=== PATIENT | female | born 1980 | race Caucasian/White ===

== ENCOUNTER → 2017-10-30 | Day surgery (SDC) | payer OTHER ==
--- NOTE | 2017-10-29 19:29 | History & Physical Pre-Op ---
General Information and HPI History of Present Illness: Special is a 37-year-old 2 para 2 with pelvic pain secondary to right ovarian cyst seen in the office 2 weeks ago presents to 6 cm in size. Previously seen 2 months prior with same cyst no resolution since that time and patient desires laparoscopic excision today. Allergies/Medications Allergies: Coded Allergies: No Known Allergies (10/24/17) Home Med list Acetaminophen/Hydrocodone Bi ([place] 325 MG-5 MG) 1 TAB TAB 1 TAB PO Q6HR PRN PAIN Hydrocodone/Acetaminophen (Hydrocodon-Acetaminophen 5-325) 5 MG-325 MG TABLET 1-2 TAB PO Q4-6 PRN PRN pain Sulfamethoxazole/Trimethoprim (Bactrim Ds Tablet) 800 MG-160 MG TABLET 1 TAB PO BID uti Past History Medical History Neurological: NONE EENT: NONE Cardiovascular: NONE Respiratory: NONE Gastrointestinal: NONE Hepatic: NONE Renal: NONE Musculoskeletal: NONE Psychiatric: NONE, PTSD Endocrine: NONE Blood Disorders: NONE WEB ADMINISTRATOR/Reproductive: NONE Surgical History Pertinent Surgical History: D&C Review of Systems Review of Systems Constitutional: Reports: see HPI. EENTM: Reports: no symptoms. Cardiovascular: Reports: no symptoms. Respiratory: Reports: no symptoms. GI: Reports: no symptoms. Genitourinary: Reports: see HPI. Musculoskeletal: Reports: no symptoms. Skin: Reports: no symptoms. Neurological/Psychological: Reports: no symptoms. Hematologic/Endocrine: Reports: no symptoms. Immunologic/Allergic: Reports: no symptoms. All Other Systems: Reviewed and Negative Exam & Diagnostic Data Physical Exam: HEENT: Normocephalic atraumatic Chest: Clear to auscultation bilaterally Cardiovascular: Normal S1-S2 Abdomen: Soft nontender no masses Pelvic: Deferred OR Extremities: No clubbing cyanosis or edema Assessment/Plan Assessment/Plan: Right ovarian cyst Plan laparoscopic excision of right ovarian cyst As Ranked By This Provider Problem List: 1. Right ovarian cyst
[~2017-10-30] VITALS: Ht 160 cm; Wt 65.8 kg
[~2017-10-30] MED LIST: BACTRIM DS TAB1 EACH PO; HYDROCODON-ACE1 EAC2 PO; NORCO 325 MG-51 TAB PO
--- NOTE | 2017-10-31 13:53 | Operative Report ---
Operative/Inv Procedure Report Surgery Date: 10/30/17 Name of Procedure: Laparoscopic excision of right ovarian cyst Pre-Operative Diagnosis: Right ovarian cyst Post-Operative Diagnosis: Same Estimated Blood Loss: scant Surgeon/Validation Technician: Dirk Farmer MD Anesthesia: general endotracheal tube Operative/Procedure Note Note: The patient was brought to the operating room and placed on the OR table in the supine position. She underwent successful general anesthesia and was successfully intubated. She was repositioned into modified port a modified dorsal lithotomy position. She was prepped and draped in usual sterile fashion. Speculum was inserted into the vagina and with the help of a Ronak retractor E single-toothed tenaculum was attached to the anterior lip of the cervix. An acorn cannula was then inserted into the cervical os and attached to the tenaculum. The weighted speculum was removed. A Martinez catheter was placed and drained clear yellow urine. The surgeon's gloves were changed and attention was paid to the abdomen. An infraumbilical skin incision was made with the scalpel and the Veress needle was placed into the abdominal cavity. All attempts were made however high opening pressures were noted and the decision was made for open laparoscopy. The incision was extended the fascia was grasped and clamped and entered. The underlying peritoneum was opened with Metzenbaum clamps. A 12 mm Was Placed through the Incision and the Abdomen Was Insufflated. The Patient Was Placed into Trendelenburg Position. A Suprapubic Stab Incision Was Made and a 5 Mm Disposable Trocar Was Inserted under Direct Visualization. Exploration of the Pelvic Cavity Revealed a Normal Uterus and Fallopian Tubes. The Right Ovary Was Approximately 6 Cm in Size with a Benign-Appearing Cyst. A Left Lower Quadrant Port Was Placed in a Similar Fashion under Direct Visualization. Through the 2 Lower Ports the Ovary Was Elevated Aspirated of Its Contents and the Cyst Was Opened. Partial Cyst Wall Was Removed for Histologic Confirmation As Well As for Therapy. Any Bleeding Sites Were Coagulated and Hemostasis Was Good. A Cyst of M[place]agni Was Removed from the Right Fallopian Tube. The End of the Procedure the Abdomen and Pelvis Were Copiously Irrigated and All Sutures Skews Me All Surgical Sites Were Noted to Be Hemostatic. The CO2 Gas Was Allowed to Escape the Abdomen and the Instruments Were Removed. The Fascia Was Closed in a Running Locking Fashion of 0 Polysorb. The Skin Incisions Were Closed with 4-0 Biosyn in an Interrupted Fashion and Dressed. The Vaginal Instruments Removed As Well As the Martinez and the Patient Was Sent to Recovery in Good Condition. All Needle, Sponge, and Management Counts Are Correct at the End of the Procedure 2.
== END ==
LOC: STS 04:21
DX: N83.291 Other ovarian cyst, right side (principal); R10.2 Pelvic and perineal pain
CPT/HCPCS: 36415; 81025; 88305; C9399; J0131; J1100; J2250; J2405

== ENCOUNTER → 2018-05-14 | Day surgery (SDC) | payer OTHER ==
--- NOTE | 2018-05-13 18:50 | History & Physical Pre-Op ---
General Information and HPI History of Present Illness: This patient is a 37-year-old 2 para 2 with recurrence of right ovarian cyst admitted today for laparoscopic right oophorectomy or cystectomy. The patient is requesting oophorectomy secondary to a recurrence however the decision will be made at the time of surgery. Patient has a than experiencing low right-sided pelvic pain since the formation of the cyst. 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 EENTM: Reports: no symptoms. Cardiovascular: Reports: no symptoms. Respiratory: Reports: no symptoms. GI: Reports: no symptoms. Genitourinary: Reports: see HPI. Musculoskeletal: Reports: no symptoms. Skin: Reports: no symptoms. Neurological/Psychological: Reports: no symptoms. Hematologic/Endocrine: Reports: no symptoms. Immunologic/Allergic: Reports: no symptoms. All Other Systems: Reviewed and Negative Exam & Diagnostic Data Last 24 Hrs of Vital Signs/I&O Vital signs stable Physical Exam: HEENT: Normocephalic atraumatic Chest: Clear to auscultation bilaterally Cardiovascular: Normal S1-S2 Abdomen: Soft nontender nondistended Pelvic: Deferred to the OR Extremities: No clubbing cyanosis or edema Neurologic: Nonfocal Assessment/Plan Assessment/Plan: Right ovarian cyst recurrence Plan laparoscopic right ovarian cystectomy or oophorectomy As Ranked By This Provider Problem List: 1. Right ovarian cyst
[~2018-05-14] VITALS: Ht 160 cm; Wt 65.3 kg
--- NOTE | 2018-05-15 09:50 | Operative Report ---
Operative/Inv Procedure Report Surgery Date: 05/14/18 Name of Procedure: Laparoscopic excision of left ovarian cyst Pre-Operative Diagnosis: Right ovarian cyst Post-Operative Diagnosis: Left ovarian cyst Estimated Blood Loss: less than 50ml Surgeon/Hospital Clinic Assistant: Dirk Farmer MD Anesthesia: general endotracheal tube Operative/Procedure Note Note: Vision is brought to the operating room placed on the OR table in the dorsal supine position. She was given adequate anesthesia and successfully intubated. Anesthesia then performed a tabs block on this patient. She was prepped and draped in usual sterile fashion. A weighted speculum was inserted into the vagina with help of a Ronak retractor a single-toothed tenaculum was attached and she'll lip of the cervix. An acorn cannula was then placed into the cervical os and attached to the tenaculum. A Martinez catheter was placed and drained clear yellow urine. The retractors were then removed from the vagina. The surgeon's gloves were changed and attention was paid to the abdomen. An infraumbilical skin incision made with the scalpel and the Veress needle was placed into the abdominal cavity. The abdomen was insufflated under high flow and low pressure until an adequate pneumoperitoneum had been achieved. At this point the Veress needle was removed and replaced with a 5 mm trocar. The trocar was removed from the sleeve and replaced with the camera which was placed into the abdominal cavity revealing good anatomic position and hemostasis. The patient was then placed into Trendelenburg position. A suprapubic stab incision was made with the scalpel and a 12 mm port was placed under direct visualization. Hemostasis was good. Through this trocar site a blunt probe was placed and the pelvic organs were visualized. The uterus was normal the right fallopian tube was noted to be normal as well as the right ovary. There was no cyst on the right ovary whatsoever. However on the left there was a large 6-7 cm benign-appearing ovarian cyst. A right lower quadrant stab incision was made with the scalpel however on attempted entry into the abdomen was as noted to be too low to close to the vessels and therefore a second right lower quadrant incision made slightly superior and the trocar was placed through this trocar site with with ease. Through both of the lower ports the left ovary was elevated and placed on traction throughout the removal of the cyst. The cyst was first aspirated of clear fluid which was sent to pathology. The cyst wall was then opened sharply and a large piece of the cyst wall was taken using the LigaSure. This was sent to pathology. The LigaSure also was used to verify and maintain hemostasis on the cut edges of the ovary. The surgical sites were then irrigated and found to be hemostatic. The CO2 gas was then allowed to escape the abdomen and the instruments were removed. The fascia was closed in the lower suprapubic port using a curved needle of 0 Polysorb. All skin incisions were closed using 3-0 Biosyn in an interrupted fashion and dressed appropriately. The vaginal instruments removed patient was then awakened and sent to recovery in good condition. All needle, sponge, and inspected counts are correct at end the procedure 2.
== END ==
LOC: STS 03:31
DX: N83.201 Unspecified ovarian cyst, right side (principal); G43.909 Migraine, unspecified, not intractable, without status migrainosus
CPT/HCPCS: 81025; 88305; J2250; J3490